=== PATIENT | female | born 1970 | race Two or more races ===

== ENCOUNTER 2020-06-09 15:10 | Inpatient (IN) | payer MEDICAID ==
[~2020-06-09] VITALS: Ht 167.6 cm; Wt 76.7 kg
[2020-06-09 17:32] LABS: CHLORIDE 107 mEq/L (98-107)
[2020-06-09 17:34] LABS: MEAN CORPUSCULAR HEMOGLOBIN 13.8 pg (28.0-32.0); MEAN PLATELET VOLUME 9.4 fl (7.4-10.4); PLATELET 397 x1000/uL (130-400); RED BLOOD CELL COUNT 4.58 mill/uL (4.2-5.4); RED CELL DISTRIBUTION WIDTH 22.8 % (11.6-14.6)
[2020-06-09 17:44] LABS: HEMOGLOBIN. 6.3 g/dL (12.0-16.0)
[2020-06-09 17:45] LABS: HEMATOCRIT. 24.3 % (36.0-48.0)
[2020-06-09 17:48] LABS: HCG SCREEN NEGATIVE
[2020-06-09 18:41] LABS: PLATELET ESTIMATE NORMAL
[2020-06-09] MEDS ORDERED: ONDANSETRON HCL 4MG/2ML INJ IV PRN (19:30)
[2020-06-09] MEDS ORDERED: ACETAMINOPHEN 325MG TABLET PO PRN (19:30)
[2020-06-09 19:45] LABS: PHOSPHORUS 3.8 mg/dL (2.5-4.9)
[2020-06-09 21:33] LABS: CLARITY URINE CLEAR (CLEAR); COLOR URINE YELLOW (YELLOW); KETONES URINE NEGATIVE (NEGATIVE); LEUKOCYTE ESTERASE URINE NEGATIVE (NEGATIVE); NITRITE URINE NEGATIVE (NEGATIVE); OCCULT BLOOD URINE NEGATIVE (NEGATIVE); PROTEIN URINE NEGATIVE (NEGATIVE); SPECIFIC GRAVITY URINE 1.009 (1.005-1.030); UROBILINOGEN URINE 0.2 E.U./dL (0.2-1.0)
[2020-06-10 04:24] LABS: CHLORIDE 107 mEq/L (98-107)
[2020-06-10 04:35] LABS: BASOPHILS % 3.9 % (0.0-2.0); EOSINOPHILS % 13.7 % (0.0-5.0); LYMPHOCYTES % 40.6 % (20.0-50.0); MEAN CORPUSCULAR HEMOGLOBIN 13.7 pg (28.0-32.0); MEAN CORPUSCULAR VOLUME 52.8 fL (81.0-99.0); MONOCYTES % 9.3 % (2.0-8.0); NEUTROPHILS % 32.5 % (40.0-76.0); RED BLOOD CELL COUNT 4.16 mill/uL (4.2-5.4); RED CELL DISTRIBUTION WIDTH 22.8 % (11.6-14.6)
[2020-06-10 04:50] LABS: HEMOGLOBIN. 5.7 g/dL (12.0-16.0)
[2020-06-10 05:50] VITALS: BP 131/69
[2020-06-10 06:12] LABS: MEAN PLATELET VOLUME 8.9 fl (7.4-10.4); PLATELET 317 x1000/uL (130-400)
[2020-06-10 06:30] VITALS: BP 117/67
[2020-06-10 07:00] VITALS: BP 108/78
[2020-06-10 08:00] VITALS: BP 121/66
[2020-06-10] MEDS ORDERED: FLUTICASONE PROPIONATE 50MCG/SPRAY BOTTLE BOTHNSTRLS SCH (09:00)
[2020-06-10 09:49] LABS: HEMATOCRIT 27.1 % (36.0-48.0); HEMOGLOBIN 7.4 g/dL (12.0-16.0)
[2020-06-10] MEDS ORDERED: ALBU18HF2 IH (11:08)
[2020-06-10 12:00] VITALS: BP 106/62
[2020-06-10 12:09] VITALS: BP 106/62
== END 2020-06-10 12:41 | disposition home or self-care (01) | DRG 532 ==
LOC: ER 15:10 → EDBEDREQTM 19:05 → EDBEDREQ 19:05 → ENRESERV 20:24 → 6EST 06-10 05:43
PROVIDERS: ADMIT Internal Medicine; ATTEND Internal Medicine
PROC: 30233N1 Transfusion of Nonautologous Red Blood Cells into Peripheral Vein, Percutaneous Approach (ICD-10-PCS; principal; 2020-06-10)
DX: N92.0 Excessive and frequent menstruation with regular cycle (principal); D64.9 Anemia, unspecified; J45.909 Unspecified asthma, uncomplicated; N93.8 Other specified abnormal uterine and vaginal bleeding
CPT/HCPCS: 36415; 71045; 80053; 81003; 83735; 84100; 84703; 85014; 85018; 85025; 86850; 86870; 86900; 86920; 93005; 93970; 99285; J2405; P9016

== ENCOUNTER 2022-01-22 15:56 | Emergency (ER) | payer MEDICAID ==
[~2022-01-22] VITALS: Ht 167.6 cm; Wt 94.0 kg
[~2022-01-22 15:56] MED LIST: ALBU18HF2 IH
[2022-01-22 17:32] LABS: BASOPHILS % 2.3 % (0.0-2.0); EOSINOPHILS % 2.6 % (0.0-5.0); MEAN CORPUSCULAR HEMOGLOBIN 14.6 pg (28.0-32.0); MEAN CORPUSCULAR VOLUME 52.1 fL (81.0-99.0); MEAN PLATELET VOLUME 9.2 fl (7.4-10.4); MONOCYTES % 8.7 % (2.0-8.0); NEUTROPHILS % 52.4 % (40.0-76.0); PLATELET 275 x1000/uL (130-400); RED CELL DISTRIBUTION WIDTH 20.9 % (11.6-14.6)
[2022-01-22 17:41] LABS: CHLORIDE 108 mEq/L (98-107)
[2022-01-22 17:47] LABS: HEMATOCRIT. 21.4 % (36.0-48.0)
[2022-01-22 18:23] LABS: PLATELET ESTIMATE NORMAL
[2022-01-23] MEDS ORDERED: [UNRECOGNIZED DRUG - CODE] MT (07:01)
[2022-01-23] MEDS ORDERED: MULT-1146 MT (07:01)
[2022-01-23 07:20] VITALS: BP 122/66
== END 2022-01-23 07:21 | disposition home or self-care (01) ==
LOC: ER 15:56
DX: D64.9 Anemia, unspecified (principal); J45.909 Unspecified asthma, uncomplicated; Z20.822 Contact with and (suspected) exposure to COVID-19
CPT/HCPCS: 36415; 80053; 85025; 86850; 86870; 86900; 86920; 87426; 99285; P9016

== ENCOUNTER 2022-12-18 19:51 | Emergency (ER) | payer MEDICAID, OTHER ==
[~2022-12-18] VITALS: Ht 167.6 cm; Wt 82.0 kg
[~2022-12-18 19:51] MED LIST changes: +MULT-1146 MT; +[UNRECOGNIZED DRUG - CODE] MT
[2022-12-18] MEDS ORDERED: NIRM1TAB PO (20:46)
[2022-12-18] MEDS ORDERED: ALBU2.5V13 NEB (20:46)
[2022-12-18 21:24] VITALS: BP 136/76
== END 2022-12-18 21:28 | disposition home or self-care (01) ==
LOC: ER 19:51
DX: U07.1 COVID-19 (principal); J45.909 Unspecified asthma, uncomplicated; F41.9 Anxiety disorder, unspecified
CPT/HCPCS: 99283